=== PATIENT | male | born 1930 | race Caucasian/White ===

== ENCOUNTER 2017-02-19 05:45 | Day surgery (SDC) | payer OTHER ==
[~2017-02-19] VITALS: Ht 170.2 cm; Wt 78.8 kg
--- NOTE | ~2017-02-19 | S ---
[facility] [address] [place] [address] SURGICAL PATH RPT PROCEDURE Name: ASHLI ARRIOLA Room #: [facility]#: [id number] Admission: 02/19/17 Date of : 32 Discharge: 02/19/17 Report #: [id number] Path Case #: [id number] PATHOLOGY REPORT COLLECTION DATE: 02/19/2017 RECEIVED DATE: 02/19/2017 SUBMITTING PHYS: Dr. Aric Case OTHER PHYS: Dr. Pee Recinos ADDENDUM REPORT (Order Date: 02/23/2017 12:43) ADDENDUM COMMENT: This addendum is issued to report a well-controlled p16 immunohistochemical stain performed on block A1. It is non-reactive (no diffuse reactivity identified). The originally rendered diagnosis remains unchanged. (IUV:csd; d/t: 02/22/2017) Professional services performed by [facility] at [facility] [address] , [place] [address] [facility] at [address] [place] [address], [address] [place] [address]. ELECTRONICALLY SIGNED BY: Lena Garvey M.D. DATE/TIME:02/23/2017 14:56 SPECIMEN(S) RECEIVED: A.Right true vocal cord mass (#1) B.Right true vocal cord mass (#2) * * * * * * * * * * * * FINAL DIAGNOSIS: A. 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 B. 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 COMMENT: A p16 immunohistochemical stain is ordered on block A1. The findings of this will be reported in an addendum to follow. Co-review: Dr. Millicent Mandel. (IUV:csd; d/t: 02/22/2017) PATHOLOGIST: Lena Garvey M.D. REPORT ELECTRONICALLY SIGNED BY: Lena Garvey M.D. DATE/TIME: 02/22/2017 16:[address] [address] SURGICAL PATH RPT PROCEDURE Name: ASHLI ARRIOLA Adrián Room #: [facility]P [facility]#: [id number] Admission: 02/19/17 Date of : 32 Discharge: 02/19/17 Report #: [id number] Path Case #: [id number] * * * * * * * * * * * * GROSS PATHOLOGY: A. The specimen is received fresh from the OR labeled with the patient's name, and "right true vocal cord mass" consists of multiple red-prakash fragments of tissue measuring 0.2 cm each, and up to an aggregate of 0.6 cm. Submitted in entirety for frozen section as FSA1, subsequently submitted for permanent sections as A1. B. The specimen is received in formalin labeled with the patient's name, and "right true vocal cord mass" consists of multiple red-prakash fragments of tissue along with blood measuring in aggregate of 0.3 cm. Submitted in entirety in B1 for permanent sections only and for additional stains needed. (IUV:mgr; d/t: 02/19/17) FROZEN SECTION DIAGNOSIS: (Orquidea Garvey M.D.) FSA1, right true vocal cord mass, biopsy: - Markedly dysplastic squamous epithelium identified along with a few verrucoid fragments. These findings are discussed with Dr. Aric Case in OR2, and a written report is placed in the patient's chart. (IUV:mgr; d/t: 02/19/17) Testing performed by [facility] at [facility] [address] [place] [address] CLINICAL HISTORY: History of a large exophytic mass along with hoarseness. INITIAL CPT CODE(S): A; 15216, 03623, 17423 B; 67091 Professional services performed by [facility] at [facility] [address] [place] [address] Technical services performed by [facility] at [address] [place] [address], [facility] [address], [place] [address]. [facility] [address] [place] [address] PHONE: [phone] [address] SURGICAL PATH RPT PROCEDURE Name: ASHLI ARRIOLA Room #: DEP [facility] [place] [place] Ade#: [id number] Admission: 02/19/17 Date of : 31 Discharge: 02/19/17 Report #: [id number] Path Case #: [id number] DIRECTOR: Olaf Hodge M.D. * * * END OF REPORT * * *
--- NOTE | ~2017-02-19 | O ---
[facility] [place] [place] [address] OPERATIVE REPORT Name: MEHDIJoASHLI Adrián Room #: [facility]#: [id number] Admission: 02/19/17 Attend Phys: Aric Case MD Discharge: 02/19/17 Date of : 31 Report #: [id number] THIS REPORT FOR: //name// CC: Aric DIAZ DATE OF SERVICE: 02/19/2017 PREOPERATIVE DIAGNOSIS: Right true vocal cord lesion. POSTOPERATIVE DIAGNOSIS: Right true vocal cord lesion. PROCEDURE: Microlaryngoscopy with biopsy of right true vocal cord lesion. SURGEON: Aric Case M.D. ANESTHESIA: General oral endotracheal, 6.5 endotracheal tube. FINDINGS: Exophytic somewhat verrucoid appearing mass in the midthird of the right medial true vocal cord edge, majority of the mass is on the dorsal surface with some wrapping around the medial edge. There was nothing on the ventral surface of the right true vocal cord. TECHNIQUE: After obtaining consent, he was brought to the operating suite, appropriate time out was performed. General oral endotracheal anesthesia was obtained, the bed was turned 90 degrees, placed in a sniffing position with a small pillow. Upon taking adequate depth of anesthetic, a was used to protect the upper dentition was left in place the entire case. There were no dental abnormalities noted at the end of the procedure. A Dedo laryngoscope was used to intubate the oral cavity and was advanced into the oropharynx. Prior to intubation, I did use digital palpation of the oral cavity in the base of the tongue as well as the anterior neck with no abnormalities noted. Once exposing the oropharynx, I advanced the Dedo laryngoscope underneath the epiglottis. The lingual and laryngeal surfaces of the epiglottis were unremarkable. I then swept towards the postcricoid area, which was normal. Both piriform sinus and mucosa appeared to be unremarkable. I then intubated the endolarynx exposing the false and true vocal cords. This was then put into suspension device the remainder of the case. The lesion was easily visualized. The operating microscope was brought into field for microscopic visualization using a right and upbiting Micro-Cup forceps, multiple biopsies were taken on the dorsal medial surface of the right true vocal cord mass. Pieces were divided between a permanent and frozen section. 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 After obtaining adequate specimen and debulking the mass, hemostasis was easily obtained by the use of 1/2 x 1/2 cottonoids soaked with adrenaline. Upon removing these, post-biopsy photos were obtained. There was no active bleeding [address] [address] OPERATIVE REPORT Name: ASHLI ARRIOLA Room #: [facility] [place] [facility] M.Ashish#: [id number] Admission: 02/19/17 Attend Phys: Aric Case MD Discharge: 02/19/17 Date of : 31 Report #: [id number] noted. Secretions were removed larynx. The Dedo laryngoscope was then removed. The patient was allowed to awaken from anesthesia, went to recovery room in stable condition. ESTIMATED BLOOD LOSS: Less than 1 mL. <ELECTRONICALLY SIGNED> By: Aric Case MD 02/23/17 1429 [id number] Aric Case MD /nt
--- NOTE | ~2017-02-19 | H ---
[facility] [place] [address] HISTORY AND PHYSICAL Name: ASHLI ARRIOLA Room #: 150-9 [facility]#: [id number] Admission: 02/19/17 Attend Phys: Aric Case MD Discharge: Date of : 31 Report #: [id number] THIS REPORT FOR: //name// CC: Aric DIAZ DATE OF SERVICE: 02/19/2017 DATE OF SURGERY: 02/19/2017 CHIEF COMPLAINT: Hoarseness. HISTORY OF PRESENT ILLNESS: The patient is an 86-year-old gentleman who presented from his primary care doctor's office, Dr. Pee Diaz, with a several month history of a hoarse voice, which was a significant change. He thought this followed upper respiratory infection; however, the voice never improved. 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 This mass does not obstruct his airway in any way. It is localized in the anterior one-third of the right vocal cord as well. Given his findings, I recommend he consider laryngoscopy with biopsy and removal of mass for therapeutic value ____ pathologic diagnosis. I discussed with him the risks involved with the surgery as well as there is no medical treatment available to reduce the size of this mass. All of his questions were adequately answered. At that point, he agreed to proceed forward. Plan will be for direct microlaryngoscopy with biopsy under general anesthesia. ALLERGIES TO MEDICATION: None. MEDICATIONS ON ADMISSION: Atorvastatin 20 mg once a day, pantoprazole 40 mg once a day, Tessalon Perles 100 mg capsules 1 or 2 day as needed, valsartan 320 mg once a day, Vascepa 1 gram capsule by mouth a day, vitamin D 2000 units 1 or 2 tablets once a day. PAST MEDICAL AND SURGICAL HISTORY: Previous skin cancer history, hypertension, hypercholesterolemia, currently active use of tobacco products. FAMILY HISTORY: Notable for heart disease. REVIEW OF SYSTEMS: Negative for any known GI, , cardiovascular, pulmonary issues aside from the smoking habit and mild coughing. PHYSICAL EXAMINATION: VITAL SIGNS: Height of 5 feet 7 inches, weight 160 pounds. HEENT: Notable above for the laryngeal examination. Oral cavity and oropharynx were unremarkable. [address] [address] HISTORY AND PHYSICAL Name: ASHLI ARRIOLA Room #: 150-9 [facility].#: [id number] Admission: 02/19/17 Attend Phys: Aric Case MD Discharge: Date of : 32 Report #: [id number] NECK: Normal to palpation. CHEST: Clear. CARDIOVASCULAR: Regular rhythm. ASSESSMENT: History of right anterior true vocal cord exophytic mass, which is worrisome in nature. Plan will be for a microlaryngoscopy with biopsy and removal of mass for pathological diagnosis. Prior to surgical intervention, the patient had a medical clearance from his primary care doctor given his previous problem of known coronary atherosclerotic disease, mitral valve regurgitation, previous history of premature atrial contractions. <ELECTRONICALLY SIGNED> By: Aric Case MD 02/19/1720 53 06 Aric Case MD /nt
[~2017-02-19 05:45] MED LIST: LIPITOR 20 MG T20 M1 PO; VALSARTAN320 MG PO
[2017-02-19 08:22] VITALS: BP 159/72
[2017-02-19 10:20] VITALS: BP 159/72
== END 2017-02-19 11:20 | disposition home or self-care (01) ==
LOC: OR 05:45 → TBA 05:45 → OR 07:56
DX: C32.0 Malignant neoplasm of glottis (principal); J38.3 Other diseases of vocal cords; I10 Essential (primary) hypertension; E78.00 Pure hypercholesterolemia, unspecified; F17.210 Nicotine dependence, cigarettes, uncomplicated; Z85.828 Personal history of other malignant neoplasm of skin
CPT/HCPCS: 50010; 50101; 62110; 62900; 70005